=== PATIENT | female | born 1985 | race Caucasian/White ===

== ENCOUNTER 2016-06-24 21:10 | Outpatient (CLI) | payer OTHER ==
[2016-09-10] MEDS ORDERED: IBUPROFEN600 MG PO (17:41)
[2016-09-10] MEDS ORDERED: ZYRTEC ALLERGY10 MG PO (17:42)
== END 2016-06-24 22:45 | disposition home or self-care (01) ==
LOC: OBC SRH 21:10 → OB SRH 21:12 → OBC SRH 22:45
PROC: 4A0HXCZ Measurement of Products of Conception, Cardiac Rate, External Approach (ICD-10-PCS; principal; 2016-06-24)
DX: O26.893 Other specified pregnancy related conditions, third trimester (principal); N89.8 Other specified noninflammatory disorders of vagina; Z3A.33 33 weeks gestation of pregnancy

== ENCOUNTER 2016-08-10 20:03 | Inpatient (IN) | payer OTHER ==
[~2016-08-10] VITALS: Ht 182.9 cm; Wt 109.3 kg
[2016-08-11] VITALS (10 sets, daily range): BP systolic 106–127; BP diastolic 59–72
[2016-08-12 00:15] VITALS: BP 130/59
[2016-08-12 07:15] VITALS: BP 130/59
--- NOTE | 2016-08-12 09:42 | Provider's Discharge Care Plan ---
Problem, Goal, Plan Problem List 1. Vaginal delivery Goals: Improve disease control Instructions: Follow up as needed
--- NOTE | 2016-08-12 09:42 | Provider's Discharge Care Plan ---
Problem, Goal, Plan Problem List 1. Vaginal delivery Goals: Improve disease control Instructions: Follow up as needed
[2016-09-10] MEDS ORDERED: IBUPROFEN600 MG PO (17:41)
[2016-09-10] MEDS ORDERED: ZYRTEC ALLERGY10 MG PO (17:42)
== END 2016-08-12 12:25 | disposition home or self-care (01) | DRG 560 ==
LOC: OB SRH 20:03
PROVIDERS: ADMIT Obstetrics & Gynecology
PROC: 3E0P7GC Introduction of Other Therapeutic Substance into Female Reproductive, Via Natural or Artificial Opening (ICD-10-PCS; 2016-08-10)
PROC: 10E0XZZ Delivery of Products of Conception, External Approach (ICD-10-PCS; principal; 2016-08-11)
PROC: 10907ZC Drainage of Amniotic Fluid, Therapeutic from Products of Conception, Via Natural or Artificial Opening (ICD-10-PCS; 2016-08-11)
DX: O99.334 Smoking (tobacco) complicating childbirth (principal); Z37.0 Single live birth; F17.210 Nicotine dependence, cigarettes, uncomplicated; Z87.898 Personal history of other specified conditions; F15.21 Other stimulant dependence, in remission; O99.344 Other mental disorders complicating childbirth; F32.9 Major depressive disorder, single episode, unspecified; Z3A.39 39 weeks gestation of pregnancy
CPT/HCPCS: 40012; 40021; 83411; 83475; 90074; 90600; 90605; 90606; 91162; 91163; 92760; 92761; 92762; 92763; 92764; 92765; 92766; 92767; 95059

== ENCOUNTER → 2016-09-12 | Outpatient (CLI) | payer OTHER ==
[~2016-09-12] MED LIST: IBUPROFEN600 MG PO; PERCOCET1 TA1 PO; ZYRTEC ALLERGY10 MG PO
== END ==
LOC: LAB SRH 12:54
DX: Z30.2 Encounter for sterilization (principal)
CPT/HCPCS: 90001; 90004; 90047; 90074; 90155; 90197; 90364; 91004; 92863; 95059

== ENCOUNTER 2016-09-14 08:01 | Day surgery (SDC) | payer OTHER ==
--- NOTE | 2016-09-07 19:20 | HISTORY AND PHYSICAL ---
ADMITTED: 09/14/2016 CHIEF COMPLAINT: 1. Recent grand multiparity, desiring permanent sterilization through bilateral salpingectomy. HISTORY OF PRESENT ILLNESS: The patient has recently delivered 4 weeks ago. She is on a drug rehabilitation program. With multiple visits and evaluations patient is concerned she will become . The patient is advised of need to wait 4-5 weeks after surgery to get her tubal ligation, in essence, interval tubal. Information on tubal ligation versus salpingectomy and reduced ovarian cancer information given to the patient. Informed consent with risks and benefits leading to variable outcomes with motor vehicle accidents related, possibility of blood loss, need for transfusion, infection, damage to pelvic organs and nonpelvic organs requiring additional surgery, ICU stay, intubation, described to the patient. She accepts and understands. MEDICAL/SURGICAL HISTORY: Menstrual history: Negative. Obstetric history: Spontaneous vaginal delivery x5. Surgical history: None. Medical: Bipolar and depression. MEDICATIONS: 1. Claritin. ALLERGIES: 1. NONE. SOCIAL HISTORY: Tobacco: One-half pack per day. Alcohol/Drugs: Negative. FAMILY HISTORY: Noncontributory. REVIEW OF SYSTEMS: Not significant. Alert and oriented x3. Genitourinary: Purpose of surgery. Cardiovascular: No shortness of breath or chest pain. Gastrointestinal: Normal bowel movements. PHYSICAL EXAMINATION: VITAL SIGNS: Six foot tall, 72 inches, 222 pounds, pulse, temperature normal. SKIN: Normal. HAIR: Normal. INTEGUMENT: Normal. HEENT: Grossly intact. BREASTS: Exam not done. LUNGS: Clear. HEART: Regular rate and rhythm. ABDOMEN: Obese. EXTREMITIES: No significant clubbing, cyanosis, erythema, edema. PELVIC: Delivery 4 weeks previous, normal. RECTAL: Delivery 4 weeks previous, normal. LAB/IMAGING: Laboratory tests: Normal, and pending. IMPRESSION: 1. Multiparity 4-5 weeks' , desiring voluntary permanent sterilization. PLAN: Informed consent for triple puncture bilateral salpingectomy. Informed consent; see above.
[~2016-09-14] VITALS: Ht 182.9 cm; Wt 99.8 kg
[~2016-09-14 08:01] MED LIST changes: -PERCOCET1 TA1 PO
--- NOTE | 2016-09-14 08:26 | NUR ---
PREOP INSTRUCTIONS GIVEN TO PATIENT AND HER FRIEND. QUESTIONS ANSWERED. PATIENT VERBALIZLES UNDERSTANDING. CONSENTS CONFIRMED. PATIENT RESTING COMFORTABLY. KB
[2016-09-14] MEDS ORDERED: PERCOCET1 TA1 PO (12:00)
--- NOTE | 2016-09-14 12:03 | Provider's Discharge Care Plan ---
Problem, Goal, Plan Problem List 1. Post-op pain Goals: Improve disease control Instructions: Follow up as needed
--- NOTE | 2016-09-14 12:03 | Provider's Discharge Care Plan ---
Problem, Goal, Plan Problem List 1. Post-op pain Goals: Improve disease control Instructions: Follow up as needed
--- NOTE | 2016-09-14 12:37 | NUR ---
PT IS AWAKE AND ALERT.PT DENIES NAUSEA.PT STATES THAT HER ABDOMINAL PAIN IS 6/10 AND "GETTING BETTER". VSS. ABDOMEN IS SOFT. DRESSING IS CLEAN AND DRY. TALKED TO A PT IN PACU. QUESTIONS ANSWERED.
--- NOTE | 2016-09-14 13:17 | NUR ---
PATIENT RETURNED TO THE FLOOR AWAKE AND TALKING. VSS. DENIES PAIN OR NAUSEA. UP TO BR INDEPENDENTLY. VOIDED. AMBULATING IN THE CORDERO. KB
[2016-09-14 13:28] VITALS: BP 124/61
--- NOTE | 2016-09-14 13:30 | OPERATIVE REPORT ---
DATE OF SURGERY: 09/14/2016 SURGEON: Valente Lyle MD LEGAL PROCESS SPECIALIST: None. PREOPERATIVE DIAGNOSIS: 1. Multiparity, voluntary sterilization grand multiparous, recent POSTOPERATIVE DIAGNOSIS: 1. Multiparity, voluntary sterilization grand multiparous, recent PROCEDURE: 1. Bilateral salpingectomy. ANESTHESIA: LMA. ANESTHESIOLOGIST: Elton Zavala MD COMPLICATIONS: None. CONDITION: Good. ESTIMATED BLOOD LOSS: Less than 5 mL. FLUIDS: See anesthesia. DRAINS: See anesthesia. Blood none. IMPLANTS/GRAFTS: None. PATHOLOGY SPECIMEN: Salpinx to pathology. SURGICAL FINDINGS: Normal. SURGICAL TECHNIQUE: The patient was prepped and draped in the usual fashion with LMA. The time-out was performed. No antibiotics were given, three 5 mm puncture sites were placed, subcutaneous 0.25 bupivacaine 1:200,000 epinephrine was used, approximately 15 mL. The first Veress needle was placed in 5 mm trocar. The other 2 under direct visualization in Trendelenburg and some manipulation revealed the salpinges throughout their full length on both sides. The fimbria were grabbed and the mesosalpinx was dissected with the Thunderbeat to within 2 cm of the cornual area. These 2 cm were cauterized in multiple places. There was good hemostasis. The 2 probes were removed under direct visualization, the third one allowed the gas to escape. The sutures were placed, Steri-Strips only. Sponge, needle, tape and instrument count was correct x2. The patient tolerated the procedure well and went to the recovery room in good condition. The patient was to be discharged later home today, she had a patient pain contract history. Per her followup counselor was to take her 10 Percocet that she was given. She was going to be given Tylenol 1 gram in the OR, along with the 30 mg of ketorolac IV. The patient was to be discharged home with p.r.n. medications, Motrin, Nuprin, Anaprox, NSAIDs and follow up in 1 week.
--- NOTE | 2016-09-14 13:53 | NUR ---
pt stated just a little sore asking to go home reviewed discharge instructions verbal and written pt and friend expressed understanding pt recited back what to do with dressing friend was keeping the pain rx
== END 2016-09-14 13:57 | disposition home or self-care (01) ==
LOC: OR SRH 08:01
PROVIDERS: Obstetrics & Gynecology
PROC: 0UB74ZZ Excision of Bilateral Fallopian Tubes, Percutaneous Endoscopic Approach (ICD-10-PCS; principal; 2016-09-14 10:00)
DX: Z30.2 Encounter for sterilization (principal); Z72.0 Tobacco use
CPT/HCPCS: 29229; 50004; 60001; 70002; 80248; 80575; 82897; 83982; 84038